=== PATIENT | male | born 1995 | race Hispanic/Latino ===

== ENCOUNTER 2022-06-05 22:55 | Emergency (ER) | payer OTHER ==
[2022-06-05] MEDS ORDERED: Ondansetron PF 4 MG/2 ML Vial ONE (23:20)
[2022-06-05] MEDS ORDERED: Morphine 4 MG/ML VIAL ONE (23:20)
[2022-06-05 23:27] LABS: #Basophils 0.1 thou/uL (0.0-0.2); #Eosinphils 0.1 thou/uL (0.0-0.7); #Lymphocytes 2.1 thou/uL (1.20-3.40); #Monocytes 0.6 thou/uL (0.11-0.59); #Neutrophils 5.7 thou/uL (1.40-6.50); %Basophils 0.9 % (0.0-1.0); %Eosinophils 1.1 % (0.0-10.0); %Monocytes 7.4 % (0.0-10.0); %Neutrophils 66.6 % (42.0-75.0); Hemoglobin 14.3 g/dL (14.0-18.0); Mean Corpuscular HGB CONC 33.3 g/dL (32.0-36.0); Mean Corpuscular Hemoglobin 29.3 pg (27.0-31.0); Mean Corpuscular Volume 88.1 fl (78.0-98.0); Mean Platelet Volume 6.3 fL (7.4-10.4); Platelet Count 372 10x3/uL (130-400); RBC Distribution Width 11.5 % (11.5-14.5); Red Blood Cell (RBC) Count 4.89 mill/uL (4.70-6.10); White Blood Cell (WBC) Count 8.6 10x3/uL (4.8-10.8)
[2022-06-05] MEDS ORDERED: Boostrix 0.5 ML (Tdap) VIAL (>/=7 yrs of age) ONE (23:29)
[2022-06-05] MEDS ORDERED: Cefepime 2 GM VIAL ONE (23:29)
[2022-06-05] MEDS ORDERED: Sodium Chloride 0.9% 100 ML ONE (23:30)
[2022-06-05 23:37] LABS: ALT (SGPT) 30 U/L (8-55); AST (SGOT) 21 U/L (5-34); Albumin 4.6 g/dL (3.5-5.0); Alkaline Phosphatase 57 U/L (40-110); Anion Gap 17 mmol/L (10-20); BUN (Urea Nitrogen) 11 mg/dL (8.9-20.6); Bilirubin, Total 0.2 mg/dL (0.2-1.2); CK (CPK) 258 U/L (30-200); Calc. Creatinine Clearance 0 mL/min (70-130); Calcium 9.7 mg/dL (7.8-10.44); Carbon Dioxide 22 mmol/L (22-29); Chloride 103 mmol/L (98-107); Estimated GFR 122; Globulin 3.3 g/dL (2.4-3.5); Glucose 98 mg/dL (70-105); Potassium 3.8 mmol/L (3.5-5.1); Protein, Total 7.9 g/dL (6.0-8.3); Sodium 138 mmol/L (136-145)
[2022-06-06 01:10] LABS: Bilirubin Negative (Negative); Blood, Urine Trace (Negative); Clarity Clear (Clear); Glucose, Urine (Dipstick) Negative (Negative); Ketone, Urine Negative (Negative); Leukocyte Trace (Negative); Nitrite Negative (Negative); Protein, Urine (Dipstick) Negative (Neg-Trace); Urobilinogen 0.2 mg/dL (Less than 2)
[2022-06-06 01:11] LABS: Bacteria/HPF None Seen HPF (None Seen); RBC/HPF 0-3 HPF (0-3); Squamous Epithelial None Seen HPF (0-3); WBC/HPF 0-3 HPF (0-3)
[2022-06-06] MEDS ORDERED: Morphine 4 MG/ML VIAL ONE (01:16)
== END 2022-06-06 01:56 | disposition short-term general hospital (02) ==
LOC: NAV ERS 22:55
DX: S62.637B Displaced fracture of distal phalanx of left little finger, initial encounter for open fracture (principal); S60.411A Abrasion of left index finger, initial encounter; S67.193A Crushing injury of left middle finger, initial encounter; W22.8XXA Striking against or struck by other objects, initial encounter; Y99.0 Civilian activity done for income or pay
CPT/HCPCS: 71045; 80053; 81003; 81015; 82550; 85025; 90471; 90715; 96365; 96375; 96376; J0692; J2270; J2405; J3490